=== PATIENT | female | born 1985 | race Caucasian/White ===

== ENCOUNTER 2019-02-03 20:42 | Emergency (ER) | payer SELFPAY ==
[~2019-02-03] VITALS: Ht 167.6 cm; Wt 61.2 kg
[2019-02-03 21:03] VITALS: BP 113/66
--- NOTE | 2019-02-03 21:07 | NUR ---
PT AMBULATED TO BED 4. PROVIDING URINE.
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
--- NOTE | 2019-02-03 21:19 | NUR ---
DR. UNDERWOOD AT BEDSIDE AT THIS TIME EVALUATING PATIENT..
[2019-02-03 21:32] LABS: BASOPHILS % (AUTO) 0.5 % (0.0-2.0); EOSINOPHILS # (AUTO) 0.3 K/uL (0-0.4); EOSINOPHILS % (AUTO) 3.7 % (0.0-4.0); HEMATOCRIT 38.9 % (36-48); HEMOGLOBIN 13.2 g/dL (12.0-16.0); LYMPHOCYTES # (AUTO) 2.8 K/uL (2.5-16.5); MEAN CORPUSCULAR HEMOGLOBIN 30 pg (27-31); MEAN CORPUSCULAR HGB CONC 34 g/dL (33-37); MEAN CORPUSCULAR VOLUME 88.9 fL (80-94); MONOCYTES # (AUTO) 0.4 K/uL (0.8-1.0); MONOCYTES % (AUTO) 4.7 % (1.7-9.3); NEUTROPHILS % (AUTO) 58.1 % (42.2-75.2); PLATELET COUNT (AUTO) 245 K/uL (140-450); RED BLOOD CELL COUNT(AUTO) 4.37 MIL/uL (4.20-5.40); RED CELL DISTRIBUTION WIDTH 14.5 % (11.6-13.7); WHITE BLOOD COUNT (AUTO) 8.6 K/uL (4.8-10.8)
--- NOTE | 2019-02-03 21:41 | NUR ---
Ultrasound at bedside.
[2019-02-03 21:46] LABS: APPEARANCE,URINE CLEAR (CLEAR); BILIRUBIN,URINE NEGATIVE (NEGATIVE); BLOOD, URINE TRACE-L (NEGATIVE); COLOR,URINE YELLOW (YELLOW); LEUKOCYTE ESTERASE ,URINE NEGATIVE (NEGATIVE); NITRITE, URINE NEGATIVE (NEGATIVE); PH,URINE 5.5 (5.0-9.0); UGLUCOSE NEGATIVE (NEGATIVE)
[2019-02-03 21:49] LABS: ANION GAP 11.6 (8-16); CARBON DIOXIDE 27.8 mmol/L (21-32); CREATININE 0.7 mg/dL (0.6-1.3); POTASSIUM 3.4 mmol/L (3.5-5.1)
[2019-02-03 21:53] LABS: RBC,URINE 0-5 /HPF (0-5); WBC,URINE 0-5 /HPF (0-5)
--- NOTE | 2019-02-03 22:03 | NUR ---
Patient discharged with v/s stable. Written and verbal after care instructions given and explained. Patient verbalized understanding. Ambulatory with steady gait. All questions addressed prior to discharge. Advised to follow up with PMD.
[2019-02-03 22:04] VITALS: BP 113/66
== END 2019-02-03 22:03 | disposition home or self-care (01) ==
LOC: MED 20:42
DX: O26.891 Other specified pregnancy related conditions, first trimester (principal); R10.9 Unspecified abdominal pain; Z3A.12 12 weeks gestation of pregnancy; V49.9XXA Car occupant (driver) (passenger) injured in unspecified traffic accident, initial encounter; Y93.89 Activity, other specified; Y92.410 Unspecified street and highway as the place of occurrence of the external cause; Y99.8 Other external cause status
CPT/HCPCS: 36415; 76801; 80048; 81001; 84702; 85025; 86900; 86901; 99284; Q0092

== ENCOUNTER 2021-12-25 07:45 | Inpatient (IN) | payer OTHER ==
[~2021-12-25] VITALS: Ht 167.6 cm; Wt 81.6 kg
[2021-12-25] MEDS ORDERED: CARBOPROST 250 MCG/ML AMP IM PRN (08:10)
[2021-12-25] MEDS ORDERED: AMPICILLIN 2,000 MG in NACL 0.9% MINI-BAG PLUS 100 ML IV ONE (08:10)
[2021-12-25] MEDS ORDERED: METHYLERGONOVINE 0.2 MG/ML AMP IM PRN ×2 (08:10→12:40)
[2021-12-25] MEDS ORDERED: OXYTOCIN 20 UNITS in LACTATED RINGERS 1,000 ML IV SCH (08:10)
[2021-12-25] MEDS ORDERED: AMPICILLIN 2,000 MG VIAL ONE (08:10)
[2021-12-25] MEDS ORDERED: LACTATED RINGERS 500 ML IV SCH (08:10)
--- NOTE | 2021-12-25 08:21 | NUR ---
PATIENT HAS BEEN SCREENED AND CATEGORIZED LOW NUTRITION RISK. PATIENT WILL BE SEEN WITHIN 7 DAYS OF ADMISSION. 12/25/21-12/31/[address]
[2021-12-25 08:30] VITALS: BP 122/58
[2021-12-25] MEDS: LACTATED RINGERS 1,000 ML IV SCH ×2 (08:42→10:44)
[2021-12-25 09:29] LABS: APPEARANCE,URINE CLEAR (CLEAR); BILIRUBIN,URINE NEGATIVE (NEGATIVE); BLOOD, URINE TRACE-I (NEGATIVE); COLOR,URINE YELLOW (YELLOW); LEUKOCYTE ESTERASE ,URINE NEGATIVE (NEGATIVE); NITRITE, URINE NEGATIVE (NEGATIVE); UGLUCOSE NEGATIVE (NEGATIVE)
[2021-12-25 09:32] LABS: ALBUMIN 2.7 g/dL (3.4-5.0); ANION GAP 11.1 (8-16); CARBON DIOXIDE 24.8 mmol/L (21-32); CREATININE 0.6 mg/dL (0.6-1.3); POTASSIUM 3.9 mmol/L (3.5-5.1); TOTAL BILIRUBIN 0.5 mg/dL (0.0-1.0)
[2021-12-25 09:38] LABS: PROTHROMBIN TIME 9.2 secs (10.8-13.4)
[2021-12-25 09:42] LABS: OTHER CASTS, URINE None Seen /LPF (None Seen); WBC,URINE 0-5 /HPF (0-5)
[2021-12-25 09:55] LABS: BASOPHILS % (AUTO) 0.5 % (0.0-2.0); EOSINOPHILS # (AUTO) 0.1 K/uL (0-0.4); HEMATOCRIT 30.5 % (36-48); LYMPHOCYTES # (AUTO) 2.1 K/uL (2.5-16.5); LYMPHOCYTES % (AUTO) 25.9 % (20.5-51.1); MEAN CORPUSCULAR HEMOGLOBIN 25 pg (27-31); MEAN CORPUSCULAR HGB CONC 33 g/dL (33-37); MEAN CORPUSCULAR VOLUME 77.6 fL (80-94); MONOCYTES # (AUTO) 0.5 K/uL (0.8-1.0); MONOCYTES % (AUTO) 6.4 % (1.7-9.3); NEUTROPHILS # (AUTO) 5.5 K/uL (1.8-7.7); NEUTROPHILS % (AUTO) 66.2 % (42.2-75.2); PLATELET COUNT (AUTO) 188 K/uL (140-450); RED BLOOD CELL COUNT(AUTO) 3.93 MIL/uL (4.20-5.40); RED CELL DISTRIBUTION WIDTH 14.4 % (11.6-13.7); WHITE BLOOD COUNT (AUTO) 8.3 K/uL (4.8-10.8)
[2021-12-25] MEDS ORDERED: NALBUPHINE 10 MG/ML AMP IM SCH (10:00)
[2021-12-25] MEDS ORDERED: NALBUPHINE 10 MG/ML AMP IM/IVP SCH (10:00)
[2021-12-25] MEDS ORDERED: OXYTOCIN 20 UNITS/LR PREMIX 1,000 ML IV ONE (10:30)
[2021-12-25] MEDS ORDERED: ROPIVACAINE 0.2%/NS PREMIX 200 ML EPI ONE (11:03)
[2021-12-25] MEDS ORDERED: AMPICILLIN 1,000 MG in NACL 0.9% MINI-BAG PLUS 50 ML IV SCH (12:00)
[2021-12-25] MEDS ORDERED: AMPICILLIN 1,000 MG VIAL ONE (12:06)
[2021-12-25] MEDS ORDERED: BENZOCAINE/MENTHOL 20%-0.5% 60 GM CAN TP PRN (12:40)
[2021-12-25] MEDS ORDERED: OXYTOCIN 10 UNITS/ML VIAL IM PRN (12:40)
[2021-12-25] MEDS ORDERED: oxyCODONE/APAP 5/325 MG 1 TAB TAB PO PRN (12:40)
[2021-12-25] MEDS ORDERED: METHYLERGONOVINE 0.2 MG TAB PO PRN (12:40)
[2021-12-25] MEDS ORDERED: TEMAZEPAM 15 MG CAP PO PRN (12:40)
[2021-12-25] MEDS ORDERED: SODIUM PHOSPHATE 118 ML ENEM RC PRN (12:40)
[2021-12-25] MEDS: IBUPROFEN 800 MG TAB PO PRN (16:06)
[2021-12-25] MEDS ORDERED: CAMERA MC ONE (19:21)
[2021-12-25] MEDS ORDERED: DOCUSATE SOD/SENNA 50/8.6 MG 1 TAB PO SCH (21:00)
[2021-12-25] MEDS: oxyCODONE/APAP 5/325 MG 1 TAB TAB PO PRN (23:03)
[2021-12-26 08:44] LABS: HEMATOCRIT 28.7 % (36-48); HEMOGLOBIN 9.5 g/dL (12.0-16.0)
[2021-12-26] MEDS: IBUPROFEN 800 MG TAB PO PRN ×2 (11:52→21:18)
[2021-12-26] MEDS: oxyCODONE/APAP 5/325 MG 1 TAB TAB PO PRN (17:23)
[2021-12-27] MEDS: IBUPROFEN 800 MG TAB PO PRN (08:28)
== END 2021-12-27 12:45 | disposition home or self-care (01) | DRG 560 ==
LOC: MLD 07:45 → OBSVTOIN 07:45 → MFCC 14:50
PROVIDERS: ADMIT Obstetrics & Gynecology; ATTEND Obstetrics & Gynecology
PROC: 10E0XZZ Delivery of Products of Conception, External Approach (ICD-10-PCS; principal; 2021-12-25)
PROC: 3E0R3BZ Introduction of Anesthetic Agent into Spinal Canal, Percutaneous Approach (ICD-10-PCS; 2021-12-25)
PROC: 00HU33Z Insertion of Infusion Device into Spinal Canal, Percutaneous Approach (ICD-10-PCS; 2021-12-25)
DX: O80 Encounter for full-term uncomplicated delivery (principal); Z37.0 Single live birth; Z20.822 Contact with and (suspected) exposure to COVID-19; Z3A.38 38 weeks gestation of pregnancy
CPT/HCPCS: 36415; 59409; 80053; 81001; 85018; 85025; 85610; 85730; 86592; 86886; 86900; 86901; J0290; J2300; J2590; J2795; J7120